=== PATIENT | male | born 1960 | race Caucasian/White ===

== ENCOUNTER 2018-06-18 13:08 | Emergency (ER) | payer BC ==
[~2018-06-18] VITALS: Ht 180.3 cm; Wt 92.9 kg
[2018-06-18 13:11] VITALS: TEMP 36.9; Ht 180.3 cm; Wt 92.9 kg
[2018-06-18] MEDS ORDERED: DIPHTHERIA/TETANUS/PERTUSSIS 0.5 ML SYR/VIAL IM. ONE (13:30)
--- NOTE | 2018-06-18 14:20 | DIAGNOSTIC IMAGING REPORT ---
LEFT HAND 3 VIEWS CLINICAL HISTORY: Puncture wound with a jeannette nail. FINDINGS: 3 views of the left hand are obtained. No prior studies are available for comparison at the time of dictation. The skeletal structures are well mineralized. No fracture is seen. There is minimal osteoarthritic change at the first carpometacarpal joint and involving the distal interphalangeal joints. No erosive change is seen. Soft tissue edema is noted in the distal wrist. No radiodense/metallic foreign body is identified. No subcutaneous gas is identified. IMPRESSION: 1. No acute bony abnormality is identified. 2. Soft tissue edema is present around the distal wrist. No radiodense/metallic foreign body is seen. Electronically signed by: Luis Daniel Roa M.D. 06/18/2018 2:18 PM Dictated Date/Time: 06/18/2018 2:17 PM
[2018-06-18] MEDS ORDERED: CEPH500C2 PO (14:49)
[2018-06-18 15:08] VITALS: BP 138/86; PULSE 64; O2SAT 93
--- NOTE | 2018-06-19 18:02 | EMERGENCY ROOM VISIT NOTE ---
ED Visit Note First contact with patient: 13:17 Chief Complaint: I have a puncture wound from a jeannette nail on my left hand. History of Present Illness: Mr. Monsivais is a 58-year-old white male who ambulates into the ED complaining of a puncture wound to the left hand. Patient reports he was working on an old cabin yesterday. He was taking off a board from the cabin and was struck with a jeannette nail in the left hand. He reports that he cleansed the wound with soap and water. Today he started noticing swelling and mild redness extending into the distal forearm. This is associated with a mild tightness sensation in the hand predominantly when he is making a fist or squeezing the palm. He rates this discomfort 1/10. The pain is nonradiating. 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 He has not taken any medications for his symptoms prior to arrival at the hospital. Associated with his discomfort and symptoms he reports he is having mild paresthesias through the fingers. He denies fevers, chills, sweats, other skin eruptions, other skin color changes , shortness of breath, decreased appetite, nausea, vomiting, hand weakness. Review of Systems: As noted above in history of present illness. Past Medical History: Sinusitis, unspecified sinus surgery. Current Medications: Patient denies. Allergies to Medications: Codeine. Social History: Patient is currently employed; he feels safe in his home environment; he denies tobacco use. Tetanus Immunization Status: Patient reports greater than 10 years. Physical Examination: Vital Signs: Date Time Temp Pulse Resp B/P (MAP) Pulse Ox O2 Delivery O2 Flow Rate FiO2 06/18/18 15:08 64 18 138/86 93 06/18/18 13:11 36.9 71 18 160/84 95 Room Air GENERAL: 58-year-old male in no acute distress, nontoxic-appearing, afebrile and hemodynamically stable. NEUROLOGICAL: Awake, alert and oriented to person, place and time. Answering questions appropriately and following commands. Good hand eye coordination. SKIN: Warm, dry and pink. Left Hand/Wrist patient has a single puncture wound in the area between the thenar and hyperthenar eminence at the distal aspect of the hand. Proximal to that patient has a U-shaped area of swelling and erythema that is warm to palpation extending into the anterior wrist. The skin does not appear cellulitic. There is no ecchymosis consistent with bruising. No lymphangitis. LEFT UPPER EXTREMITY: No gross bony deformity. Soft tissue injury as noted above. No tenderness over any of the bony structures. On palpating his room I do not appreciate any palpable foreign bodies. There is no local bony crepitus or deformity. Full range of motion in pronation and supination of the forearm, flexion, extension and radial lateral ulnar deviation of the wrist and flexion and extension of all fingers. Throughout the hand the skin was warm and pink and capillary refill is brisk. He was able to distinguish light sensations to all dermatomes of the hands. ED Course: Patient is assessed as noted above. Patient's medication list was reviewed. Left Hand X-Rays: Were read by myself and the radiologist showing no bony abnormalities. Soft tissue swelling was noted over the distal wrist without any radiopaque foreign bodies. Patient was given an Adacel booster IM. He was offered pain medication and refused. Patient's wounds were cleansed with antibacterial soap and water. Sterile bacitracin dressing was applied. Patient was educated about today's findings and instructed on his treatment plan ; he verbalized understanding and agreement with this plan. Clinical Impression: Puncture wound left hand. Possible early skin infection. Disposition: Patient discharged home in stable condition accompanied by his ; prior to departure he was reassessed and subjectively reported he was pain- free. Plan: Patient was encouraged use ibuprofen or acetaminophen as needed for pain every 6 hours. Wound care and signs of infection were discussed with the patient. Patient was encouraged to keep the area clean and covered with antibiotic dressings. Patient was prescribed Keflex 500 mg 4 times a day for 7 days. Patient was encouraged to follow-up with his PCP or return to the ED for recheck in 36-48 hours. Patient was encouraged return the ED sooner for worsening/increasing redness/ swelling, red streaking, puslike drainage, fevers or any new/concerning symptoms.
== END 2018-06-18 15:09 | disposition home or self-care (01) ==
LOC: C.EDB 13:09 → C.EDD 15:09
DX: S61.432A Puncture wound without foreign body of left hand, initial encounter (principal); W45.0XXA Nail entering through skin, initial encounter; Z23 Encounter for immunization; Z88.6 Allergy status to analgesic agent